=== PATIENT | female | born 1960 | race Caucasian/White ===

== ENCOUNTER 2017-08-12 15:09 | Emergency (ER) | payer BC ==
[~2017-08-12] VITALS: Ht 157.5 cm; Wt 73.5 kg
[~2017-08-12 15:09] MED LIST: ALBUTEROL INH INH; AMBIEN 10 MG TA10 MG PO; AMITRIPTYLINE H25 M2 PO; ANAPROX DS550 MG PO; APAP650 PO; B-100 COMPLEX1 EAC1; CARAFATE 1 GM TA1 G1; CIPROFLOXACIN500 M1 PO; CLOBETASOL PROP60 G1 TP; CLONAZEPAM 1 MG1 M1 PO; DIABETIC T200 MG/5 M PO; DOXEPIN 50MG CA50 M1; DOXEPIN 50MG CA50 M1 PO; DOXYCYCLINE HYC50 M2; FLAXSEED OIL1000 MG; FLONASE 0.05%50 MCG NASAL; FLONASE 0.05%50 MCG NS; FLUZONE 2045 MCG/011; INDERAL LA160 MG PO; LEVOXYL75 MCG; MEDROLDOSEPACK PO; MELATONIN1 MG; MULTIVITAMINS PO; NAPROSYN500 MG; NOHOMEMEDICATIONS; NORCO 5-325 TA1 EACH PO; OMEPRAZOLE40 MG PO; OSPHENA60 MG PO; PERCOCET 5-3251 EACH PO; PERCOCET 7.5-31 EACH PO; PNEUMOVAX25 MCG/0.5; PREDNISONE50 MG PO; PREMARIN1.25 MG; PRIMROSE; PROAIR HFA8.5 GM; PROTONIX40 M2; PYRIDIUM200 MG PO; PYRIDOXINE; TESSALON PERLE100 MG; TRAMADOL 50 MG50 MG PO; ULTRAM 50MG TAB50 MG; WELLBUTRIN 75 M75 M1 PO; XANAX XR1 MG PO; ZPAK PO; [UNRECOGNIZED DRUG - CODE]; [UNRECOGNIZED DRUG - OTHER]; [UNRECOGNIZED DRUG - OTHER]; [UNRECOGNIZED DRUG - OTHER]
[2017-08-12] MEDS ORDERED: TURMERIC500 M2 PO (15:27)
[2017-08-12] MEDS ORDERED: CRANBERRY300 MG PO (15:29)
[2017-08-12] MEDS ORDERED: MELATONIN3 MG PO (15:29)
[2017-08-12] MEDS ORDERED: ZANTAC 150MG T150 MG PO (15:30)
[2017-08-12] MEDS ORDERED: OXYBUTYNIN 5 MG5 M2 PO (15:30)
[2017-08-12 15:32] LABS: URINE BILIRUBIN NEGATIVE (Negative); URINE BLOOD TRACE (Negative); URINE CLARITY CLEAR; URINE COLOR YELLOW; URINE GLUCOSE-RANDOM NEGATIVE (Negative); URINE KETONES NEGATIVE (Negative); URINE LEUKOCYTES-REFLEX NEGATIVE (Negative); URINE NITRITE-REFLEX NEGATIVE (Negative); URINE PROTEIN NEGATIVE (Negative); URINE SPECIFIC GRAVITY <= 1.005 (1.005-1.030); URINE UROBILINOGEN 0.2 E.U./dl (0.2-1.0)
[2017-08-12 15:46] LABS: ABSOLUTE BASOPHILS 0.1 thou/uL (0.0-0.2); ABSOLUTE EOSINOPHILS 0.2 thou/uL (0.0-0.7); ABSOLUTE LYMPHOCYTES 2.4 thou/uL (0.8-5.3); ABSOLUTE MONOCYTES 0.7 thou/uL (0.0-1.2); BASOPHILS 1.4 %; EOSINOPHILS 2.3 %; HEMATOCRIT 39.9 % (37.0-47.0); HEMOGLOBIN 13.4 gm/dL (12.0-15.0); LYMPHOCYTES 32.1 %; MCH 29.7 pg (26.0-34.0); MCHC 33.5 g/dL (28.0-37.0); MCV 88.5 fL (80.0-100.0); MONOCYTES 9.8 %; MPV 8.1 fl. (7.2-11.1); NUCLEATED RBCS 0 /100WBC; PLATELET COUNT* 313 thou/uL (150-400); POLYS 54.4 %; RDW-CV 13.4 % (10.5-14.5); WBC 7.4 thou/uL (4.0-11.0)
[2017-08-12 15:57] LABS: ANION GAP 7 mmol/L (7-16); BUN 13 mg/dL (7-18); CALCIUM 8.6 mg/dL (8.5-10.1); CHLORIDE 104 mmol/L (98-107); CO2 28 mmol/L (21-32); CREATININE 0.8 mg/dL (0.6-1.3); GLUCOSE 104 mg/dL (70-99); POTASSIUM 3.8 mmol/L (3.5-5.1); SODIUM 139 mmol/L (136-145)
[2017-08-12 16:04] LABS: ALBUMIN 3.2 g/dL (3.4-5.0); ALKALINE PHOSPHATASE 136 U/L (46-116); LIPASE 211 U/L (73-393); SGOT 13 U/L (15-37); SGPT 18 U/L (30-65); TOTAL BILIRUBIN 0.2 mg/dL (<0.1-1.0); TOTAL PROTEIN 7.1 g/dL (6.4-8.2); TROPONIN-I LEVEL <0.06 ng/mL (<0.06)
[2017-08-12] MEDS ORDERED: ZOFRAN ODT4 MG PO (16:54)
[2017-08-12] MEDS ORDERED: TORADOL 10 MG T10 MG PO (16:54)
[2017-08-12] MEDS ORDERED: TRAMADOL 50 MG50 MG PO (16:54)
[2017-08-12] MEDS ORDERED: CIPRO500 MG PO (17:02)
[2017-08-12] MEDS ORDERED: MEDROLDOSEPACK PO (17:02)
[2017-08-12] MEDS ORDERED: FLAGYL500 MG PO (17:02)
[2017-08-12 17:05] VITALS: BP 107/61
--- NOTE | 2017-08-13 14:30 | EKG ---
[place] [address] ELECTROCARDIOGRAM REPORT Name: BERTHAJOSAFAT TODD Saulo Room: [facility]#: [id number] Admission: 08/12/17 Attend Phys: Discharge: 08/12/17 Date of : 60 Report #: [id number] THIS REPORT FOR: //name// [facility] ED Test Date: 2017-08-12 Test Time: 15:27:08 Pat Name: JOSAFAT NUNO Department: Room: Gender: F Furniture Mover: SOWMYA : 1960 Requested By: Kianna Vasquez Order Number: [id number] MD: Enoc Camp Measurements Intervals [place] Rate: 69 P: 37 IA: 167 QRS: 1 QRSD: 71 T: -65 QT: 419 QTc: 449 Interpretive Statements Sinus rhythm Repol abnrm suggests ischemia, anterolateral Compared to ECG 02/28/2016 21:54:59 Early repolarization now present Possible ischemia now present Myocardial infarct finding no longer present Electronically Signed On 08-13-2017 14:30:20 CDT by Enoc Camp [email or web address] <ELECTRONICALLY SIGNED> By: Enoc Camp MD, [facility] 08/13/17 1430 1527 1527 Enoc Camp MD, [facility] /EPI
== END 2017-08-12 17:06 | disposition home or self-care (01) ==
LOC: M.ERS 15:09
PROVIDERS: Physician Assistant
DX: R10.30 Lower abdominal pain, unspecified (principal); F32.9 Major depressive disorder, single episode, unspecified; Z90.710 Acquired absence of both cervix and uterus; Z88.1 Allergy status to other antibiotic agents; Z88.0 Allergy status to penicillin; Z88.5 Allergy status to narcotic agent; Z88.8 Allergy status to other drugs, medicaments and biological substances

== ENCOUNTER 2017-11-24 10:42 | Emergency (ER) | payer BC ==
[~2017-11-24] VITALS: Ht 157.5 cm; Wt 72.1 kg
[~2017-11-24 10:42] MED LIST changes: +CIPRO500 MG PO; +CRANBERRY300 MG PO; +FLAGYL500 MG PO; +MELATONIN3 MG PO; +OXYBUTYNIN 5 MG5 M2 PO; +TORADOL 10 MG T10 MG PO; +TURMERIC500 M2 PO; +ZANTAC 150MG T150 MG PO; +ZOFRAN ODT4 MG PO
[2017-11-24] MEDS ORDERED: REQUIP 1 MG TABL1 M1 PO (11:03)
[2017-11-24] MEDS ORDERED: TRAMADOL 50 MG50 MG PO (11:56)
[2017-11-24] MEDS ORDERED: NAPROSYN500 MG PO (11:56)
[2017-11-24 12:24] VITALS: BP 130/77
== END 2017-11-24 12:25 | disposition home or self-care (01) ==
LOC: M.ERS 10:42
DX: S89.82XA Other specified injuries of left lower leg, initial encounter (principal); F32.9 Major depressive disorder, single episode, unspecified; Z90.49 Acquired absence of other specified parts of digestive tract; Z90.710 Acquired absence of both cervix and uterus; Z87.440 Personal history of urinary (tract) infections; Z88.1 Allergy status to other antibiotic agents; Z88.0 Allergy status to penicillin; Z88.5 Allergy status to narcotic agent; Z88.6 Allergy status to analgesic agent; Z87.891 Personal history of nicotine dependence; X58.XXXA Exposure to other specified factors, initial encounter; Y93.89 Activity, other specified; Y92.89 Other specified places as the place of occurrence of the external cause; Y99.8 Other external cause status

== ENCOUNTER 2018-01-05 15:55 | Emergency (ER) | payer BC ==
[~2018-01-05] VITALS: Ht 157.5 cm; Wt 68.0 kg
[~2018-01-05 15:55] MED LIST changes: +NAPROSYN500 MG PO; +REQUIP 1 MG TABL1 M1 PO
[2018-01-05] MEDS ORDERED: ULTRAM 50MG TAB50 MG PO (16:58)
[2018-01-05 17:19] VITALS: BP 135/82
== END 2018-01-05 17:19 | disposition home or self-care (01) ==
LOC: M.ERS 15:55
DX: S80.02XD Contusion of left knee, subsequent encounter (principal); X58.XXXD Exposure to other specified factors, subsequent encounter; B37.9 Candidiasis, unspecified; F32.9 Major depressive disorder, single episode, unspecified; Z90.49 Acquired absence of other specified parts of digestive tract; Z90.710 Acquired absence of both cervix and uterus; Z87.891 Personal history of nicotine dependence; Z88.1 Allergy status to other antibiotic agents; Z88.5 Allergy status to narcotic agent; Z88.0 Allergy status to penicillin

== ENCOUNTER 2019-04-13 03:24 | Emergency (ER) | payer BC ==
[~2019-04-13] VITALS: Ht 160 cm; Wt 68.0 kg
[~2019-04-13 03:24] MED LIST changes: +ULTRAM 50MG TAB50 MG PO
[2019-04-13 03:33] VITALS: BP 176/84
[2019-04-13] MEDS ORDERED: TESSALON PERLE100 M1 PO (03:37)
[2019-04-13] MEDS ORDERED: PERCOCET 5-3251 EACH PO (03:52)
[2019-04-13] MEDS ORDERED: CEFDINIR300 MG PO (03:52)
[2019-04-13] MEDS ORDERED: ZOFRAN ODT4 MG PO (03:52)
== END 2019-04-13 04:02 | disposition home or self-care (01) ==
LOC: M.ERS 03:24
DX: J02.9 Acute pharyngitis, unspecified (principal); F32.9 Major depressive disorder, single episode, unspecified; Z90.49 Acquired absence of other specified parts of digestive tract; Z90.711 Acquired absence of uterus with remaining cervical stump; Z88.1 Allergy status to other antibiotic agents; Z88.5 Allergy status to narcotic agent; Z88.0 Allergy status to penicillin; Z87.891 Personal history of nicotine dependence

== ENCOUNTER 2020-04-01 10:34 | Emergency (ER) | payer BC ==
[~2020-04-01] VITALS: Ht 160 cm; Wt 83.9 kg
[~2020-04-01 10:34] MED LIST changes: +CEFDINIR300 MG PO; +TESSALON PERLE100 M1 PO
[2020-04-01] MEDS ORDERED: NEURONTIN 300M300 M2 PO (10:50)
[2020-04-01] MEDS ORDERED: ADVIL200 M3 PO (10:51)
[2020-04-01] MEDS ORDERED: DOXYCYCLINE 10100 M2 PO (12:09)
[2020-04-01] MEDS ORDERED: PREDNISONE50 MG PO (12:09)
[2020-04-01] MEDS ORDERED: VENTOLIN HFA 1818 GM INH (12:09)
[2020-04-01 12:30] VITALS: BP 114/67
== END 2020-04-01 12:31 | disposition home or self-care (01) ==
LOC: M.ERS 10:34
DX: J40 Bronchitis, not specified as acute or chronic (principal); Z90.710 Acquired absence of both cervix and uterus; Z79.899 Other long term (current) drug therapy; Z87.891 Personal history of nicotine dependence; Z88.0 Allergy status to penicillin; Z88.1 Allergy status to other antibiotic agents; Z88.5 Allergy status to narcotic agent; Z20.828 Contact with and (suspected) exposure to other viral communicable diseases

== ENCOUNTER 2020-04-09 11:17 | Emergency (ER) | payer BC ==
[~2020-04-09] VITALS: Ht 160 cm; Wt 83.9 kg
[~2020-04-09 11:17] MED LIST changes: +ADVIL200 M3 PO; +DOXYCYCLINE 10100 M2 PO; +NEURONTIN 300M300 M2 PO; +VENTOLIN HFA 1818 GM INH
[2020-04-09 12:21] LABS: INFLUENZA A ANTIGEN Negative (Negative); INFLUENZA B ANTIGEN Negative (Negative)
[2020-04-09 13:01] LABS: ABSOLUTE BASOPHILS 0.2 thou/uL (0.0-0.2); ABSOLUTE EOSINOPHILS 0.1 thou/uL (0.0-0.7); ABSOLUTE LYMPHOCYTES 3.4 thou/uL (0.8-5.3); ABSOLUTE MONOCYTES 0.9 thou/uL (0.0-1.2); ABSOLUTE NEUTROPHILS 11.3 thou/uL (1.6-8.1); EOSINOPHILS 0.5 %; HEMATOCRIT 42.2 % (37.0-47.0); HEMOGLOBIN 13.8 gm/dL (12.0-15.0); LYMPHOCYTES 21.7 %; MCH 29.7 pg (26.0-34.0); MCHC 32.7 g/dL (28.0-37.0); MCV 90.8 fL (80.0-100.0); MONOCYTES 5.6 %; MPV 7.9 fl. (7.2-11.1); NUCLEATED RBCS 0 /100WBC; PLATELET COUNT* 297 thou/uL (150-400); POLYS 71.2 %; RBC 4.65 mil/uL (4.20-5.00); RDW-CV 12.9 % (10.5-14.5); WBC 15.8 thou/uL (4.0-11.0)
[2020-04-09 13:08] LABS: CALCIUM 8.7 mg/dL (8.5-10.1); CREATININE 0.9 mg/dL (0.6-1.3); POTASSIUM 4.1 mmol/L (3.5-5.1)
[2020-04-09 13:13] LABS: ALBUMIN 3.1 g/dL (3.4-5.0); TOTAL BILIRUBIN 0.4 mg/dL (<0.1-1.0); TOTAL PROTEIN 6.8 g/dL (6.4-8.2)
[2020-04-09] MEDS ORDERED: TRAMADOL 50 MG50 MG PO (14:24)
[2020-04-09 14:47] VITALS: BP 92/57
== END 2020-04-09 14:49 | disposition home or self-care (01) ==
LOC: M.ERS 11:17
PROVIDERS: Physician Assistant
DX: J20.9 Acute bronchitis, unspecified (principal); Z20.822 Contact with and (suspected) exposure to COVID-19; R94.5 Abnormal results of liver function studies; Z87.891 Personal history of nicotine dependence; Z88.1 Allergy status to other antibiotic agents; Z88.5 Allergy status to narcotic agent; Z79.899 Other long term (current) drug therapy; Z90.710 Acquired absence of both cervix and uterus; Z90.49 Acquired absence of other specified parts of digestive tract

== ENCOUNTER 2020-09-01 09:31 | Emergency (ER) | payer BC ==
[~2020-09-01] VITALS: Ht 160 cm; Wt 84.4 kg
[2020-09-01 10:02] LABS: ABSOLUTE BASOPHILS 0.1 thou/uL (0.0-0.2); ABSOLUTE EOSINOPHILS 0.1 thou/uL (0.0-0.7); ABSOLUTE LYMPHOCYTES 2.1 thou/uL (0.8-5.3); ABSOLUTE MONOCYTES 1.3 thou/uL (0.0-1.2); ABSOLUTE NEUTROPHILS 12.6 thou/uL (1.6-8.1); BASOPHILS 0.9 %; EOSINOPHILS 0.7 %; HEMATOCRIT 39.9 % (37.0-47.0); HEMOGLOBIN 13.9 gm/dL (12.0-15.0); LYMPHOCYTES 12.8 %; MCH 30.9 pg (26.0-34.0); MCHC 34.7 g/dL (28.0-37.0); MCV 89.1 fL (80.0-100.0); MONOCYTES 7.7 %; MPV 7.7 fl. (7.2-11.1); NUCLEATED RBCS 0 /100WBC; PLATELET COUNT* 305 thou/uL (150-400); POLYS 77.9 %; RBC 4.48 mil/uL (4.20-5.00); RDW-CV 13.2 % (10.5-14.5); WBC 16.2 thou/uL (4.0-11.0)
[2020-09-01 10:08] LABS: CALCIUM 8.7 mg/dL (8.5-10.1); CREATININE 0.8 mg/dL (0.6-1.3); POTASSIUM 4.2 mmol/L (3.5-5.1)
[2020-09-01 10:22] LABS: ALBUMIN 3.4 g/dL (3.4-5.0); CK-MB MASS 1.5 ng/mL (<0.5-3.6); MAGNESIUM 1.7 mg/dL (1.8-2.4); TOTAL BILIRUBIN 0.3 mg/dL (<0.1-1.0); TOTAL PROTEIN 7.5 g/dL (6.4-8.2)
[2020-09-01 11:13] VITALS: BP 121/74
--- NOTE | 2020-09-01 14:44 | EKG ---
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: RISHABH : 1960 Requested By: Ulisses Heath Order Number: [id number] MD: Enoc Camp Measurements Intervals [place] Rate: 120 P: 70 CA: 164 QRS: 31 QRSD: 68 T: 8 QT: 319 QTc: 451 Interpretive Statements Sinus tachycardia Delayed R wave progression, consider anterior infarct Compared to ECG 08/12/2017 15:27:08 Myocardial infarct finding now present Sinus rhythm no longer present Early repolarization no longer present Possible ischemia no longer present Electronically Signed On 09-01-2020 14:44:30 CDT by Enoc Camp [email or web address] <ELECTRONICALLY SIGNED> By: Enoc Camp MD, FACC 09/01/20 1444 0935 0935 Enoc Camp MD, FACC /EPI
== END 2020-09-01 11:14 | disposition home or self-care (01) ==
LOC: M.ERS 09:31
PROVIDERS: Family Medicine
DX: R07.89 Other chest pain (principal); Z87.891 Personal history of nicotine dependence; Z88.1 Allergy status to other antibiotic agents; Z88.5 Allergy status to narcotic agent; Z88.0 Allergy status to penicillin; Z90.710 Acquired absence of both cervix and uterus; Z87.440 Personal history of urinary (tract) infections; Z90.49 Acquired absence of other specified parts of digestive tract